=== PATIENT | female | born 1935 | race Caucasian/White ===

== ENCOUNTER 2017-08-24 10:12 | Emergency (ER) | payer OTHER ==
[2017-08-24 10:21] VITALS: BP 167/83; BMI 30.4
--- NOTE | 2017-08-24 11:01 | DR.GENAD ---
HPI - PCP Primary Care Physician: ELLEN - Complaint/Symptoms Chief Complaint Doctors Comments: Patient states that she has had problems with walking for one year, she uses a walker there has been no changes noted. Shed denies falling. She admits to weakness since being treated for otitis media of the right ear one week ago. The weakness has been ongoing for one year. Chief Complaint:: "CAN'T WALK, WEAKNESS, SUGAR ELEVATED, HIGH BLOOD PRESSURE" Self Treatment fo Chief Complaint: NONE - Source History Provided: Patient - Mode of Arrival Mode of Arrival: Wheelchair - Timing Onset of Chief Complaint: 08/23/17 PMH - PMH Past Medical History: Yes Past Medical History: Diabetes, Hypertension Past Surgical History: Yes Surgical History: Hysterectomy Past Surgical History Comment: SHOULDER SURGERY - Family History History of Family Medical Conditions: Yes Family Medical History: Hypertension - Social History Does patient currently use any type of tobacco product: No Have you used tobacco products in the last 12 months: No Type of Tobacco Use: None Does any household member use tobacco: No Alcohol Use: None Do you use any recreational Drugs:: No Lives With: Alone Lives Where: Home - infectious screening In the last 2 months have you had wt loss of >10#?: NO Have you had fever, night sweats or hemotysis?: No Have you traveled outside the country in the last 6 months?: No ROS - Review of Systems Eyes: No Symptoms Reported ENTM: No Symptoms Reported Respiratoy: No Symptoms Reported Cardiovascular: No Symptoms Reported Gastrointestinal/Abdominal: No Symptoms Reported Genitourinary: No Symptoms Reported Neurological: No Symptoms Reported Musculoskeletal: No Symptoms Reported Integumentary: No Symptoms Reported Hematologic/Lymphatic: No Symptoms Reported Endocrine: No Symptoms Reported Psychiatric: No Symptoms Reported All Other Systems: Reviewed and Negative PE - Vital Signs Vitals: Temperature 98.4 F Pulse Rate 91 Respiratory Rate 20 Blood Pressure 167/83 O2 Sat by Pulse Oximetry 96 - General Limitations: No Limitations General Appearance: Alert, In No Apparent Distress - Head Head Exam: Normal Inspection, Atraumatic - Eyes Eye exam: Normal Appearance, PERRL, EOMI - ENT ENT Exam: Normal Exam External Ear Exam: Normal External Inspection TM/Canal Exam: Bilateral Normal Nose Exam: Normal Nose Exam Mouth Exam: Normal Inspection Throat Exam: Normal Inspection - Neck Neck Exam: Normal Inspection, Full ROM - Chest Chest Inspection: Normal Inspection - Respiratory Respiratory Exam: Normal Lung Sounds Bilat Respiratory Exam: Bilateral Clear to Auscultation - Cardiovascular Cardiovascular Exam: Regular Rate, Normal Rhythm - Abdominal Exam Abdominal Exam: Normal Inspection Abdominal Tenderness: negative: RUQ, RLQ, LUQ, LLQ, Epigastrium, Suprapubic, Diffuse, Mild, Moderate, Severe, Other - Extremities Extremities Exam: Edema - Back Back Exam: Normal Inspection - Neurologic Neurological Exam: Alert, Oriented X3, CN II-XII Intact - Psychiatric Psychiatric Exam: Normal Affect - Skin Skin Exam: Warm, Dry, Intact Course - Reevaluation 1st: Unchanged ROR - Labs Reviewed Result Diagrams: 08/24/17 11:15 08/24/17 11:15 Laboratory: WBC 12.8 X10^3/uL (3.6-10.0) H 08/24/17 11:15 RBC 4.99 X10^6/uL (3.5-5.4) 08/24/17 11:15 Hgb 14.9 g/dL (12.0-16.0) 08/24/17 11:15 Hct 43.3 % (36.0-47.0) 08/24/17 11:15 MCV 86.8 fL (80.0-100.0) 08/24/17 11:15 MCH 29.8 pg (27.0-34.0) 08/24/17 11:15 MCHC 34.4 g/dL (33.0-35.0) 08/24/17 11:15 RDW 12.6 % (11.6-16.5) 08/24/17 11:15 Plt Count 301 X10^3/uL (150.0-450.0) 08/24/17 11:15 Plt Count Comment Adequate (ADEQUATE) 08/24/17 11:15 MPV 8.5 fL (7.4-11.0) 08/24/17 11:15 Neut % 84.0 % (42.0-75.0) H 08/24/17 11:15 Lymph % 11.5 % (21.0-51.0) L 08/24/17 11:15 Wetzel % 4.0 % (0.0-13.0) 08/24/17 11:15 Eos % 0.2 % (0.9-2.9) L 08/24/17 11:15 Baso % 0.3 % (0.2-1.0) 08/24/17 11:15 Neut # 10.8 x10^3/uL (2.2-4.8) H 08/24/17 11:15 Lymph # 1.5 X10^3/uL (1.3-2.9) 08/24/17 11:15 Wetzel # 0.5 x10^3/uL (0.3-0.8) 08/24/17 11:15 Eos # 0.0 x10^3/uL (0.0-0.2) 08/24/17 11:15 Baso # 0.0 X10^3/uL (0.0-0.1) 08/24/17 11:15 Absolute Nucleated RBC 0.0 /100WBC 08/24/17 11:15 Total Counted 100 08/24/17 11:15 Neutrophils % (Manual) 76 % (39-76) 08/24/17 11:15 Lymphocytes % (Manual) 21 % (13-43) 08/24/17 11:15 Monocytes % (Manual) 2 % (4-9) L 08/24/17 11:15 Eosinophils % (Manual) 1 % (0-6) 08/24/17 11:15 Plt Morphology Comment Normal (NORMAL) 08/24/17 11:15 RBC Morphology Normal (NORMAL) 08/24/17 11:15 Sodium 134 mmol/L (136-145) L 08/24/17 11:15 Corrected Sodium 137 mmol/L (136-145) 08/24/17 11:15 Potassium 4.3 mmol/L (3.5-5.1) 08/24/17 11:15 Chloride 100 mmol/L (98-107) 08/24/17 11:15 Carbon Dioxide 24.9 mmol/L (21-32) 08/24/17 11:15 BUN 37 mg/dL (7-18) H 08/24/17 11:15 Creatinine 1.71 mg/dL (0.55-1.02) H 08/24/17 11:15 Est GFR (MDRD) Af Amer 37 (>60) L 08/24/17 11:15 Est GFR (MDRD) Non-Af 30 (>60) L 08/24/17 11:15 Glucose 219 mg/dL (65-99) H 08/24/17 11:15 Hemoglobin A1c 6.8 % (4.5-6.2) H 08/24/17 11:15 Calcium 10.0 mg/dL (8.5-10.1) 08/24/17 11:15 Corrected Calcium TNP 08/24/17 11:15 Total Bilirubin 0.60 mg/dL (0.2-1.0) 08/24/17 11:15 AST 24 Units/L (15-37) 08/24/17 11:15 ALT 28 Units/L (12-78) 08/24/17 11:15 Alkaline Phosphatase 111 Units/L (46-116) 08/24/17 11:15 Total Protein 8.2 g/dL (6.4-8.2) 08/24/17 11:15 Albumin 3.8 g/dL (3.4-5.0) 08/24/17 11:15 Globulin 4.4 g/dL (2.5-4.5) 08/24/17 11:15 Albumin/Globulin Ratio 0.9 Ratio (1.1-2.1) L 08/24/17 11:15 - XRAY XRAY Interpreted by: Radiologist (The heart is mildly enlarged. The pulmonary vessels are normal. The lungs are hypoinflated. No obvious consolidation or effusion is seen. Impression: Mild cardiomnegaly) - Diagnosis Discharge Problem: Limb weakness, Mild cardiomegaly Right otitis externa Qualifiers: Otitis externa type: unspecified type Chronicity: chronic Qualified Code(s): H60.61 - Unspecified chronic otitis externa, right ear - Discharge Plan Condition: Stable - Follow ups/Referrals Follow ups/Referrals: Kait HUGHES [Primary Care Provider] - 3 days - Instructions
[2017-08-24 11:27] LABS: BASOPHILS % (AUTO) 0.3 % (0.2-1.0); EOSINOPHILS % (AUTO) 0.2 % (0.9-2.9); HEMATOCRIT 43.3 % (36.0-47.0); HEMOGLOBIN 14.9 g/dL (12.0-16.0); LYMPHOCYTES # (AUTO) 1.5 X10^3/uL (1.3-2.9); LYMPHOCYTES % (AUTO) 11.5 % (21.0-51.0); MEAN CORPUSCULAR HEMOGLOBIN 29.8 pg (27.0-34.0); MEAN CORPUSCULAR HGB CONC 34.4 g/dL (33.0-35.0); MEAN CORPUSCULAR VOLUME 86.8 fL (80.0-100.0); MEAN PLATELET VOLUME 8.5 fL (7.4-11.0); MONOCYTES # (AUTO) 0.5 x10^3/uL (0.3-0.8); NEUTROPHILS # (AUTO) 10.8 x10^3/uL (2.2-4.8); PLATELET COUNT 301 X10^3/uL (150.0-450.0); RED BLOOD COUNT 4.99 X10^6/uL (3.5-5.4); RED CELL DISTRIBUTION WIDTH 12.6 % (11.6-16.5); WHITE BLOOD COUNT 12.8 X10^3/uL (3.6-10.0)
[2017-08-24 11:37] LABS: ALANINE AMINOTRANSFERASE 28 Units/L (12-78); ALBUMIN 3.8 g/dL (3.4-5.0); ALKALINE PHOSPHATASE 111 Units/L (46-116); ASPARTATE AMINO TRANSFERASE 24 Units/L (15-37); BLOOD UREA NITROGEN 37 mg/dL (7-18); CARBON DIOXIDE 24.9 mmol/L (21-32); CHLORIDE 100 mmol/L (98-107); COR NA(FOR HYPERGLY) 137 mmol/L (136-145); CREATININE 1.71 mg/dL (0.55-1.02); SODIUM 134 mmol/L (136-145); TOTAL PROTEIN 8.2 g/dL (6.4-8.2); eGFR BLACK RACES 37 (>60); eGFR NON BLACK RACES 30 (>60)
[2017-08-24 11:45] LABS: HEMOGLOBIN A1C 6.8 % (4.5-6.2)
[2017-08-24 11:51] LABS: PLATELET MORPHOLOGY COMMENT NORMAL (NORMAL)
--- NOTE | 2017-08-24 12:31 | RAD ---
HISTORY: shortness of breath Study: Portable chest Comparison: None Findings: The heart is mildly enlarged. The pulmonary vessels are normal. The lungs are hypoinflated. No obviou s consolidation or effusion is seen. IMPRESSION: Hypoinflation limiting the exam with no obvious acute infiltrate. Mild cardiomegaly. Reported By:
== END 2017-08-24 13:02 | disposition home or self-care (01) ==
LOC: ER 10:32
DX: R53.1 Weakness (principal); I51.7 Cardiomegaly; H60.61 Unspecified chronic otitis externa, right ear
CPT/HCPCS: 36415; 71010; 80053; 83036; 85025; 99283